=== PATIENT | female | born 1940 | race Caucasian/White ===

== ENCOUNTER → 2024-10-06 | Outpatient (CLI) | payer MEDICARE, OTHER, SELFPAY ==
--- NOTE | 2024-10-06 12:55 | MRI_ITS ---
We are attempting to reach an attending provider to discuss findings. An addendum with communication details will be sent when the communication is complete. STUDY: MR PELVIS WITHOUT CONTRAST REASON FOR EXAM: Female, 83 years old. LEFT HIP PAIN,LEFT BUTTOCK MUSCLE TEAR TECHNIQUE: Standardized fat and water weighted pulse sequences were obtained in all 3 orthogonal planes. COMPARISON: None. FINDINGS: Normal urinary bladder. Normal visualized small intestine. Normal visualized colon. There is no pelvic fluid. There is no pelvic mass lesion or lymphadenopathy. Normal visualized pelvic arteries. Acute fracture of the subcapital left femoral neck with edema throughout the femoral head in intertrochanteric area.. Normal abdominal wall. MRI/Pelvis (Routine) IMPRESSION: Acute fracture of the subcapital left femoral neck. Electronically Signed: Chon Saba MD at 12:44 EST ,
--- NOTE | 2024-10-06 13:02 | MRI_ITS ---
STUDY: MRI LUMBAR SPINE WITHOUT CONTRAST REASON FOR EXAM: Female, 83 years old. LEFT HIP PAIN TECHNIQUE: Standardized fat and water weighted pulse sequences were obtained in the sagittal and axial planes. COMPARISON: None FINDINGS: T12-L1: Status post posterior decompression. Mild bilobed disc protrusion produces mild spinal stenosis. No neural foraminal stenosis. There is an exaggerated lumbar lordosis. There is no substantial scoliosis. Normal conus medullaris that terminates at the T12/L1. Mild wedging deformity and concavity the inferior endplate of T12 consistent with a compression fracture. No marrow edema consistent with a chronic compression fracture. No retropulsion into the spinal canal. L1-2: Status post posterior decompression. 2 mm retrolisthesis of L1 on L2 with a mild bilobed disc protrusion produces moderate spinal stenosis relieved by the posterior decompression and moderate bilateral neural foraminal stenosis. L2-3: Status post posterior decompression. 5 mm retrolisthesis of L2 on L3 with a mild bilobed disc protrusion produces severe spinal stenosis relieved by the posterior decompression and severe bilateral neural foraminal stenosis. L3-4: Mild bilateral facet hypertrophy and moderate ligament flavum hypertrophy. Moderate bilobed disc protrusion produces spinal stenosis and moderate bilateral neural foraminal stenosis. L4-5: Moderate lateral facet hypertrophy and severe ligament flavum hypertrophy. Large broad disc protrusion asymmetric left produces severe spinal stenosis with moderate right lateral recess stenosis and severe left lateral recess stenosis and moderate bilateral neural foraminal stenosis. L5-S1: Mild bilateral facet hypertrophy and moderate ligament flavum hypertrophy. Moderate broad disc protrusion produces moderate spinal stenosis and moderate lateral neural foraminal stenosis. Normal visualized sacral ala. Normal visualized paraspinous soft tissue structures. MRI/Spine Lumbar (Routine) IMPRESSION: Mild wedge compression fracture of T12 without retropulsion into the spinal canal. Postsurgical changes and degenerative disc disease as described above. Electronically Signed: Chon Saba MD at 12:55 EST ,
== END | disposition home or self-care (01) ==
PROVIDERS: Referring Provider Anesthesiology; Visit Provider Anesthesiology
DX: M25.552 Pain in left hip (principal); M54.16 Radiculopathy, lumbar region; S76.312A Strain of muscle, fascia and tendon of the posterior muscle group at thigh level, left thigh, initial encounter
CPT/HCPCS: 72148; 72195